=== PATIENT | female | born 1955 | race Caucasian/White ===

== ENCOUNTER 2018-09-08 08:07 | Inpatient (IN) | payer MEDICARE, MEDICAID | END 2018-09-10 10:30 | disposition home or self-care (01) | LOC: PAS IN 08:07 → ORTHO 4S 17:40 | PROC: 0SRB0J9 Replacement of Left Hip Joint with Synthetic Substitute, Cemented, Open Approach (ICD-10-PCS; principal; 2018-09-08 10:58) | DX: M16.12 Unilateral primary osteoarthritis, left hip (principal); D62 Acute posthemorrhagic anemia ==

== ENCOUNTER 2024-01-25 15:31 | Emergency (ER) | payer MEDICARE, MEDICAID ==
[~2024-01-25] VITALS: Ht 154.9 cm; Wt 86.0 kg
[~2024-01-25 15:31] MED LIST: ALEN70TA80 PO; ASPI-1 PO; BACL20TA7 PO; BIOT25008 PO; HYDR25CA PO; LOSA100T58 PO; PANT40TA54 PO; TRAM50TA2 PO; [UNRECOGNIZED DRUG - OTHER] PO
[2024-01-25] MEDS ORDERED: FLUT16SP2 BOTHNARES (16:35)
[2024-01-25] MEDS ORDERED: POLOS EACHEYE (16:35)
[2024-01-25] MEDS ORDERED: AMOX-117 PO (16:35)
[2024-01-25 16:40] VITALS: BP 146/85; PULSE 82; RESP 16; TEMP 98.5; O2SAT 98
== END 2024-01-25 16:41 | disposition home or self-care (01) ==
LOC: ER 15:32
DX: H10.89 Other conjunctivitis (principal); J32.8 Other chronic sinusitis; Z88.8 Allergy status to other drugs, medicaments and biological substances; Z79.899 Other long term (current) drug therapy; Z79.82 Long term (current) use of aspirin
CPT/HCPCS: 99283

== ENCOUNTER 2024-09-13 13:02 | Emergency (ER) | payer MEDICARE, MEDICAID ==
[~2024-09-13] VITALS: Ht 152.4 cm; Wt 92.3 kg
[~2024-09-13 13:02] MED LIST changes: +FLUT16SP2 BOTHNARES
[2024-09-13 13:31] VITALS: BP 165/93; PULSE 100; RESP 18; TEMP 97.8; O2SAT 96
[2024-09-13] MEDS ORDERED: SULF1TAB49 PO (15:46)
[2024-09-13] MEDS ORDERED: CEPH-585 PO (15:46)
== END 2024-09-13 16:06 | disposition home or self-care (01) ==
LOC: ER 13:03
DX: S81.802A Unspecified open wound, left lower leg, initial encounter (principal); E11.9 Type 2 diabetes mellitus without complications; Z88.5 Allergy status to narcotic agent; Z88.8 Allergy status to other drugs, medicaments and biological substances; X58.XXXA Exposure to other specified factors, initial encounter; Y93.89 Activity, other specified; Y92.89 Other specified places as the place of occurrence of the external cause; Y99.8 Other external cause status
CPT/HCPCS: 99283

== ENCOUNTER 2024-11-04 13:10 | Emergency (ER) | payer MEDICARE, MEDICAID ==
[~2024-11-04] VITALS: Ht 154.9 cm; Wt 85.6 kg
[2024-11-04 13:18] VITALS: BP 147/83; PULSE 87; RESP 16; TEMP 99.5; O2SAT 98
--- NOTE | 2024-11-04 14:16 | Physician Documentation ---
History of Present Illness ~ Chief Complaint: Wound Stated Complaint: L ANKLE INFECTION Time Seen by MD: 14:02 HPI This is a 69-year-old female with history of diabetes who presents with concern for a chronic nonhealing wound to the lateral aspect of left calf, patient repor ts she was seen approximately a month ago and placed on a 10 day course of antibiotics with Keflex and Bactrim after sustaining wound, patient reports it has been improving though two days ago began worsening. Patient reports that it is tender to the touch otherwise does not cause her pain. Patient reports she feels otherwise well and reports no other acute symptoms or concerns including no subjective fever. Tetanus within 5 years?: No Medication Reconciliation Allergies: Coded Allergies: gabapentin (Verified Allergy, Severe, SOB,SLURRED SPEECH, 09/13/24) morphine (Verified Adverse Reaction, Unknown, N/V, 09/13/24) Scheduled Alendronate Sodium (Alendronate Sodium), 70 MG PO Q7D, (Reported) Aspirin (Aspirin), 325 MG PO Q24H@0830 Baclofen (Baclofen), 20 MG PO TID, (Reported) Biotin (Biotin), 2,500 MCG PO DAILY, (Reported) Cephalexin*Monohydrate* (Keflex*), 1 CAP PO QID Fluticasone Propionate (Flonase), 2 SPRAYS BOTHNARES DAILY Hydroxyzine Pamoate (Vistaril), 1 CAP PO TID, (Reported) Losartan Potassium (Losartan Potassium), 100 MG PO HS, (Reported) Pantoprazole Sodium (Pantoprazole Sodium), 40 MG PO BKF [Sinaquan], 150 MG PO HS, (Reported) Scheduled PRN Tramadol Hcl (Tramadol Hcl), 50 MG PO Q4HPRN PRN for pain, (Reported) Past Medical History Past Medical History: Hypertension, Diabetes Review of Systems ROS Poor healing wound to left lateral calf as stated above in the HPI, otherwise all systems are reviewed and negative. Physical Exam Vital Signs: Temperature: 99.5, Source: Oral, Heart Rate: 87, Respiratory Rate: 16, BP: 147/83, Pulse Oximetry: 98, Weight: 85.600 Oxygen Flow Rate: 0 Physical Exam VITALS: Reviewed and as above. GENERAL: Alert, nontoxic appearing, no apparent distress. RESPIRATORY: No increased work of breathing, no respiratory distress, speaking in full clear sentences MUSCULOSKELETAL: Left foot strong pedal pulse, brisk capillary refill, decreased sensation in foot at baseline though sensation intact with no new decrease in sensation SKIN: Skin of left lateral calf proximally 2 cm round shallow chronic appearing wound and 1 cm round shallow chronic appearing wound with surrounding erythema in his tender to palpation without significant induration or fluctuance Progress Results/Orders Results/Orders Vital Signs 11/04/24 13:18 Temp 99.5 Pulse 87 Resp 16 B/P (MAP) 147/83 Pulse Ox 98 O2 Flow Rate 0 Medical Decision Making Findings This 69-year-old female presented with concern for a poorly healing wound to her left lateral calf, patient reports that it has been improving though in the past two days it has become more erythematous, physical exam demonstrated what appears to be a chronic poor healing wound with surrounding erythema without significant purulent discharge, induration, or fluctuance consistent with early infection, it is reassuring patient reports no systemic symptoms including no fever or chills. Additionally reassuring remainder of patient's physical exam was benign and she is hemodynamically stable. While patient may benefit from initiation of wound care inpatient and possibly IV antibiotics, patient has a strong preference against admission wishing to go home and manage her wound in the outpatient setting. This patient has many reassuring factors she is appropriate for outpatient follow up, patient is to follow up with outpatient wound care, patient verbalized understanding of the need to follow up with outpatient wound care. Patient initiated on course of oral antibiotics. Patient provided careful return to care precautions and home care instructions which she verbalized understanding of. Differential Dx:Considerations: Include: Abscess, Cellulitis, Healing wound, Other (Sepsis, necrotizing fasciitis, gangrene) Departure Disposition: 01 HOME / SELF CARE / HOMELESS Impression: Primary Impression: Wound infection Condition: Stable Discharge Instructions: Wound Care, Adult, Wound Infection Additional Instructions: Follow up with outpatient wound care for management of your wound, their information has been provided. Please take the antibiotics as prescribed. Keep the area clean, dry, and covered. Please follow up with your primary care provider in the next few days. Please return to the emergency department for any new or worsening concerning symptoms including but not limited to worsening pain and swelling to the area or if you develop a fever. Referrals: NO PRIMARY CARE PROVIDER (PCP) [facility], [facility] Prescriptions Cephalexin*Monohydrate* (Keflex*) 500 Mg Capsule 1 CAP PO QID for 7 Days, #28 CAP Prov: NIYA KC 11/04/24 Education Educated: Patient Educated regarding: diagnosis, treatment, prognosis, need for follow up Signature Scribe Signature: No scribe Attestation: The note accurately reflects work and decisions made by me.ADWOA Fierro 11/05/24 01:25 NIYA KC November 04, 2024 14:16
[2024-11-04] MEDS ORDERED: CEPH-585 PO (15:00)
== END 2024-11-04 15:21 | disposition home or self-care (01) ==
LOC: ER 13:11
DX: L08.9 Local infection of the skin and subcutaneous tissue, unspecified (principal); E11.9 Type 2 diabetes mellitus without complications; I10 Essential (primary) hypertension; Z88.5 Allergy status to narcotic agent; Z88.8 Allergy status to other drugs, medicaments and biological substances
CPT/HCPCS: 99283

== ENCOUNTER 2024-11-11 23:13 | Emergency (ER) | payer MEDICARE, MEDICAID ==
[~2024-11-11] VITALS: Ht 154.9 cm; Wt 82.9 kg
[~2024-11-11 23:13] MED LIST changes: +CEPH-585 PO
[2024-11-11 23:17] VITALS: BP 146/71; PULSE 80; RESP 16; O2SAT 97
--- NOTE | 2024-11-12 01:13 | Physician Documentation ---
History of Present Illness ~ Chief Complaint: Wound Re-Check Stated Complaint: WOUND INFECTION Time Seen by MD: 01:06 HPI Patient presents to the emergency room with continued problems with her left lower extremity leg wound. Patient was seen here proximally month ago and placed on 10 day course of antibiotics. She was then seen again within this past week and placed on Keflex. She was referred to wound care and has been playing phone tag with them trying to establish an appointment. No fevers. She would like the wound may be getting worse. Tetanus within 5 years?: No Medication Reconciliation Allergies: Coded Allergies: gabapentin (Verified Allergy, Severe, SOB,SLURRED SPEECH, 11/11/24) morphine (Verified Adverse Reaction, Unknown, N/V, 11/11/24) Scheduled Alendronate Sodium (Alendronate Sodium), 70 MG PO Q7D, (Reported) Aspirin (Aspirin), 325 MG PO Q24H@0830 Baclofen (Baclofen), 20 MG PO TID, (Reported) Biotin (Biotin), 2,500 MCG PO DAILY, (Reported) Fluticasone Propionate (Flonase), 2 SPRAYS BOTHNARES DAILY Hydroxyzine Pamoate (Vistaril), 1 CAP PO TID, (Reported) Losartan Potassium (Losartan Potassium), 100 MG PO HS, (Reported) Pantoprazole Sodium (Pantoprazole Sodium), 40 MG PO BKF [Sinaquan], 150 MG PO HS, (Reported) Scheduled PRN Tramadol Hcl (Tramadol Hcl), 50 MG PO Q4HPRN PRN for pain, (Reported) Discontinued Medications Cephalexin*Monohydrate* (Keflex*), 1 CAP PO QID Discontinued Reason: Auto Discontinued Past Medical History Past Medical History: Hypertension, Diabetes Review of Systems ROS All review of systems negative except as per HPI Physical Exam Vital Signs: Temperature: 98.5, Source: Oral, Heart Rate: 80, Respiratory Rate: 16, BP: 146/71, Pulse Oximetry: 97, Weight: 82.900 Oxygen Flow Rate: 0 Physical Exam General: Patient is awake, alert, oriented x4 in no acute distress Head: Normocephalic and atraumatic. Eyes: Conjunctival normal. EOMI. PERRL. ENT: Mucous membranes moist. Neck: Supple, trachea is midline. Chest: Clear to auscultation bilaterally without rales, rhonchi, or wheezes. There is no accessory muscle use or retractions. Cardiac: RRR without murmurs, gallops, or rubs. Extremities: Chronic coin sized wounds to left lateral leg. Very mild purulent drainage. Painful to touch. No fluctuance Progress Results/Orders Results/Orders Orders - PLACIDO JARRELL MD Culture Body Fluid Order (11/12/24 01:21) Ondansetron Disint. Tablet (Zofran Odt T (11/12/24 01:25) Doxycycline 100mg Capsule (Vibramycin 10 (11/12/24 01:21) Vital Signs 11/11/24 23:17 Temp 98.5 Pulse 80 Resp 16 B/P (MAP) 146/71 Pulse Ox 97 O2 Flow Rate 0 Medical Decision Making Findings Patient presents to the emergency room for evaluation of we will extremity wound as per HPI. Differentials include but are not limited to abscess, cellulitis, sepsis, foreign body. Given history he had not feel patient requires imaging or labs as vitals are stable. Cultures taken and she has been instructed to continue to work to establish herself in wound care. ER precautions regarding worsening of symptoms discussed. At this juncture feel adding doxycycline that has an appropriate course of action. Departure Disposition: HOME / SELF CARE / HOMELESS Impression: Primary Impression: Cellulitis Condition: Stable Discharge Instructions: Cellulitis, Adult Additional Instructions: Continue to work to establish herself at wound care. We are placing you on additional antibiotics. Return for worsening of symptoms Referrals: NO PRIMARY CARE PROVIDER (PCP) Prescriptions Mupirocin* (Bactroban*) 22 Gm Tube 1 APPLIC TOP Q8H for 5 Days, #15 GM apply to affected area(s) Prov: PLACIDO JARRELL MD 11/12/24 Cephalexin*Monohydrate* (Keflex*) 500 Mg Capsule 1 CAP PO Q8H for 10 Days, #30 CAP Prov: PLACIDO JARRELL MD 11/12/24 Doxycycline Monohydrate (Doxycycline Monohydrate) 100 Mg Capsule 1 CAP PO Q12H for 10 Days, #20 CAP Prov: PLACIDO JARRELL MD 11/12/24 Education Educated: Patient Educated regarding: diagnosis, treatment, need for follow up Signature Scribe Signature: No scribe Attestation: The note accurately reflects work and decisions made by me.Placido Jarrell MD 11/12/24 01:28 PLACIDO JARRELL MD Nov 12, 2024 01:13
[2024-11-12 01:26] VITALS: TEMP 98.5
[2024-11-12] MEDS ORDERED: DOXY-462 PO (01:27)
[2024-11-12] MEDS ORDERED: MUPI22OI30 TOP (01:27)
[2024-11-12] MEDS ORDERED: CEPH-585 PO (01:27)
[2024-11-12] MEDS: ondansetron 4mg rapidly disintigrating tab PO ONE (01:31)
[2024-11-12] MEDS: DOXYCYCLINE 100MG CAPSULE PO STA (01:31)
[2024-11-12] MEDS: bacitracin 15gm ointment TP ONE (01:43)
== END 2024-11-12 01:43 | disposition home or self-care (01) ==
LOC: ER 23:13
DX: L03.116 Cellulitis of left lower limb (principal); E11.9 Type 2 diabetes mellitus without complications; I10 Essential (primary) hypertension; Z88.5 Allergy status to narcotic agent; Z88.8 Allergy status to other drugs, medicaments and biological substances
CPT/HCPCS: 87070; 87077; 87186; 99284; A6258